=== PATIENT | male | born 1985 | race Caucasian/White ===

== ENCOUNTER 2025-04-09 08:22 | Outpatient (CLI) | payer OTHER, SELFPAY ==
--- NOTE | ~2025-04-09 | CT_ITS ---
EXAMINATION: CT sinus wo con COMPARISON: None HISTORY: J32.9 - Chronic sinusitis, unspecified TECHNIQUE: Axial images were obtained without IV contrast. Sagittal, coronal reconstruction images were obtained from the axial views. CT scan performed using dose optimization techniques including the following automated exposure control; adjustment of mA and/or kV; use of iterative reconstruction technique. Automatic exposure control was used to reduce radiation dose. Permanent radiation dose record is archived to PACS. FINDINGS: Visualized brain parenchyma and orbits appear unremarkable. Soft tissues are unremarkable Frontal sinus is unremarkable. Minimal mucosal thickening in the ethmoidal air cells. Minimal mucosal thickening in the right maxillary sinus. No air-fluid levels are noted. The ostiomeatal complexes are patent. Nasal septum is deviated slightly to the right. Mild thickening of the turbinates and mild narrowing of nasal cavities. The sphenoid sinuses are unremarkable. There is no osseous destruction or wall thickening identified. IMPRESSION: Minimal sinusitis. Reviewed, dictated and finalized at location P. COMPANION IMPRESSION: Minimal sinusitis.
== END 2025-04-09 08:23 | disposition home or self-care (01) ==
LOC: MICIMG 08:23
PROVIDERS: PCP Internal Medicine; Visit Provider Otolaryngology Otolaryngology/Facial Plastic Surgery
DX: J32.9 Chronic sinusitis, unspecified (principal)
CPT/HCPCS: 70486